=== PATIENT | male | born 1955 | race Caucasian/White ===

== ENCOUNTER 2017-08-27 12:16 | Emergency (ER) | payer MEDICARE ==
[~2017-08-27] VITALS: Ht 175.3 cm; Wt 71.7 kg
[~2017-08-27 12:16] MED LIST: ANTACID650 MG PO; CALCIUM ACETAT667 MG PO; FLOMAX0.4 MG PO; HUMALOG100 UNIT/2 SQ; KAYEXALATE15 GM/601 GT; LANTUS100 UNIT/M SUBQ; LEVAQUIN 500 M500 M2 PO; LIPITOR10 MG PO; METOPROLOL SUCC50 MG PO; NEURONTIN 300300 M1 PO; NEURONTIN250 MG/5 M PO; NEURONTIN600 MG PO; NICOTINE TRANSD21 M1 TRANSDERM; PREDNISONE 10 M10 MG PO
[2017-08-27 14:41] VITALS: BP 196/81
== END 2017-08-27 14:42 | disposition home or self-care (01) ==
LOC: M.ERS 12:16
DX: S16.1XXA Strain of muscle, fascia and tendon at neck level, initial encounter (principal); S09.90XA Unspecified injury of head, initial encounter; S39.012A Strain of muscle, fascia and tendon of lower back, initial encounter; I13.0 Hypertensive heart and chronic kidney disease with heart failure and stage 1 through stage 4 chronic kidney disease, or unspecified chronic kidney disease; E11.22 Type 2 diabetes mellitus with diabetic chronic kidney disease; N18.9 Chronic kidney disease, unspecified; I50.9 Heart failure, unspecified; Z79.4 Long term (current) use of insulin; V43.53XA Car driver injured in collision with pick-up truck in traffic accident, initial encounter; Y93.89 Activity, other specified; Y92.89 Other specified places as the place of occurrence of the external cause; Y99.8 Other external cause status

== ENCOUNTER 2017-11-08 09:02 | Observation (INO) | payer MEDICARE ==
[~2017-11-08] VITALS: Ht 175.3 cm; Wt 82.1 kg
[2017-11-08 09:03] VITALS: BP 197/134
[2017-11-08] MEDS ORDERED: LIDOCAINE-PRIL1 EACH TOP (09:09)
[2017-11-08] MEDS ORDERED: CALCIUM CARBONAT1 GM PO (09:09)
[2017-11-08] MEDS ORDERED: REQUIP1 MG PO (09:10)
[2017-11-08] MEDS ORDERED: FINASTERIDE5 MG PO (09:10)
[2017-11-08] MEDS ORDERED: VITAMIN D2000 UNIT PO (09:10)
[2017-11-08] MEDS ORDERED: MAGOX 400400 MG PO (09:10)
[2017-11-08] MEDS ORDERED: VOL-CARE RX TA1 EACH PO (09:10)
[2017-11-08 09:23] LABS: ABSOLUTE BASOPHILS 0.1 thou/uL (0.0-0.2); ABSOLUTE EOSINOPHILS 0.2 thou/uL (0.0-0.7); ABSOLUTE LYMPHOCYTES 1.5 thou/uL (0.8-5.3); ABSOLUTE MONOCYTES 0.4 thou/uL (0.0-1.2); ABSOLUTE NEUTROPHILS 3.7 thou/uL (1.6-8.1); BASOPHILS 1.3 %; EOSINOPHILS 3.8 %; HEMATOCRIT 37.7 % (42.0-52.0); LYMPHOCYTES 25.3 %; MCH 30.6 pg (26.0-34.0); MCHC 34.6 g/dL (28.0-37.0); MCV 88.4 fL (80.0-100.0); MONOCYTES 6.7 %; MPV 7.9 fl. (7.2-11.1); NUCLEATED RBCS 0 /100WBC; PLATELET COUNT* 241 thou/uL (150-400); POLYS 62.9 %; RBC 4.26 mil/uL (4.50-6.00); RDW-CV 14.6 % (10.5-14.5); WBC 5.8 thou/uL (4.0-11.0)
[2017-11-08 09:34] LABS: APTT 27.1 Seconds (25.0-31.3); PROTIME 9.5 Seconds (9.20-11.50)
[2017-11-08 09:37] LABS: ANION GAP 3 mmol/L (7-16); BUN 24 mg/dL (7-18); CALCIUM 8.7 mg/dL (8.5-10.1); CHLORIDE 99 mmol/L (98-107); CO2 36 mmol/L (21-32); CREATININE 2.9 mg/dL (0.6-1.3); GLUCOSE 117 mg/dL (70-99); POTASSIUM 4.4 mmol/L (3.5-5.1); SODIUM 138 mmol/L (136-145)
[2017-11-08 09:50] LABS: URINE BILIRUBIN NEGATIVE (Negative); URINE BLOOD TRACE (Negative); URINE CLARITY CLEAR; URINE COLOR YELLOW; URINE GLUCOSE-RANDOM 3+ (Negative); URINE KETONES NEGATIVE (Negative); URINE LEUKOCYTES-REFLEX NEGATIVE (Negative); URINE NITRITE-REFLEX NEGATIVE (Negative); URINE PROTEIN 3+ (Negative); URINE SPECIFIC GRAVITY 1.015 (1.005-1.030); URINE UROBILINOGEN 0.2 E.U./dl (0.2-1.0)
[2017-11-08 09:56] LABS: SQUAMOUS 4-10 Moderate /LPF (0-3)
[2017-11-08 09:57] LABS: ALBUMIN 2.9 g/dL (3.4-5.0); ALKALINE PHOSPHATASE 100 U/L (46-116); AMMONIA 15 umol/L (11-32); CK-MB MASS 2.3 ng/mL (<0.5-3.6); NT-PRO BRAIN NAT PEPTIDE 14598 pg/mL (<300); SGOT 13 U/L (15-37); SGPT 16 U/L (30-65); TOTAL BILIRUBIN 0.3 mg/dL (<0.1-1.0); TOTAL PROTEIN 7.1 g/dL (6.4-8.2); TROPONIN-I LEVEL <0.06 ng/mL (<0.06)
[2017-11-08 09:57] LABS: AMP/METHAMP Negative (Negative); BACTERIA-REFLEX 1-9 Few /HPF (None Seen); BARBITURATES Negative (Negative); BENZODIAZEPINES Negative (Negative); CASTS None Seen /LPF (None Seen); COCAINE Negative (Negative); CRYSTALS None Seen /LPF (None Seen); METHADONE Negative (Negative); MUCUS None Seen strn/LPF (None Seen); OPIATES Negative (Negative); PCP Negative (Negative); THC Negative (Negative); URINE RBC 3-10 Few /HPF (0-2); URINE WBC-REFLEX 0-5 Rare /HPF (0-5)
--- NOTE | 2017-11-08 10:02 | NUR ---
[facility] NOTIFIED UPON PT RETURN FROM CT. PT CONNECTED TO MONITOR
[2017-11-08 11:58] VITALS: BP 159/109
[2017-11-08 12:00] VITALS: BP 182/60
--- NOTE | 2017-11-08 12:30 | NUR ---
ER ADMIT TO ROOM 10 VIA W/C FROM ER. ADMISSION ASSESSMENT COMPLETE, DEFER TO COMPUTER CHARTING. 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 DENIES DIZZINESS, CHEST PAIN OR ANY DISCOMFORT AT THIS TIME. ORIENTED TO ROOM/CALL LIGHT AND PLAN OF CARE, VERBALIZED UNDERSTANDING. SUPERVISION TO W/C TO MRI FOR TEST.
[2017-11-08 15:37] VITALS: BP 171/66
--- NOTE | 2017-11-08 16:02 | EKG ---
[place] [address] ELECTROCARDIOGRAM REPORT Name: FRANKY HERRERA Room: [address] ADM IN M.R.#: [id number] Admission: 11/08/17 Attend Phys: Fareed Vasquez MD Discharge: Date of : 53 Report #: [id number] THIS REPORT FOR: //name// [facility] ED Test Date: 2017-11-08 Test Time: 09:19:39 Pat Name: FRANKY HERRERA Department: Room: [facility] Gender: M Athletic Instructor: COX BRANSON : 1955 Requested By: Casey Mark Order Number: [id number] MD: Davdi Moser Measurements Intervals [place] Rate: 51 P: 34 HI: 257 QRS: -83 QRSD: 95 T: 137 QT: 493 QTc: 455 Interpretive Statements Sinus rhythm Prolonged HI interval LAD, consider left anterior fascicular block Abnormal T, consider ischemia, lateral leads Baseline wander in lead(s) V1 Compared to ECG 01/26/2017 11:22:36 First degree AV block now present T-wave abnormality now present Possible ischemia now present Electronically Signed On 11-08-2017 16:02:44 CDT by David Moser [email or web address] <ELECTRONICALLY SIGNED> By: David Moser MD, [facility] 11/08/17 1602 8 8 David Moser MD, [facility] /EPI
--- NOTE | 2017-11-08 16:42 | NUR ---
CARIDAC MONITOR TRACKING SB. ALERT ORIENTED, AMBULATED IN HALLS WITH PHYSICAL THERAPY. NO DIFFICULTY WITH SWALLOWING NOTED, DENIES DIZZINESS, PAIN - NIH SCORE 0 AT THIS TIME. WILL CONTINUE WITH PLAN OF CARE.
--- NOTE | 2017-11-08 17:05 | 2DMMODE ---
[place] [address] 2 D/M-MODE ECHOCARDIOGRAM Name: FRANKY HERRERA Room: [address] IN [facility]#: [id number] Admission: 11/08/17 Attend Phys: Fareed Vasquez, Discharge: Date of : 53 Date of Service: 11/08/17 1704 Report #: [id number] THIS REPORT FOR: //name// APPROVED REPORT Study performed: 11/08/2017 14:49:52 EXAM: Comprehensive 2D, Doppler, and color-flow Echocardiogram Patient Location: In-Patient Room #: 210 Status: routine BSA: 1.96 HR: 57 bpm BP: 163/118 mmHg Rhythm: NSR Other Information Study Quality: Good Indications CVA/TIA Echo Enhancing Agent Indication: Rule out Shunt Agent(s) / Amount(s) Used: Agitated Saline 10 cc 2D Dimensions LVEF(%): 69.68 (>50%) IVSd: 13.56 (7-11mm) LVOT Diam: 22.62 (18-24mm) LVDd: 48.99 mm PWd: 12.09 (7-11mm) Ascending Ao: 34.43 (22-36mm) LVDs: 29.71 (25-40mm) Aortic Root: 36.77 mm Tomlinson's LVEF: 69.68 % Volumes Left Atrial Volume (Systole) LA ESV Index: 45.20 mL/m2 Aortic Valve AoV Peak Chris.: 1.34 m/s AO Peak Gr.: 7.23 mmHg LVOT Max P.06 mmHg AO Mean Gr.: 4.43 mmHg LVOT Mean P.55 mmHg LVOT Max V: 1.01 m/s AO V2 VTI: 35.21 cm LVOT Mean V: 0.77 m/[place] [address] 2 D/M-MODE ECHOCARDIOGRAM Name: FRANKY HERRERA Room: [address] IN ..#: [id number] Admission: 11/08/17 Attend Phys: Fareed Vasquez, Discharge: Date of : 53 Date of Service: 11/08/17 1704 Report #: [id number] CHANCE (VTI): 3.04 cm2 LVOT V1 VTI: 26.64 cm Mitral Valve E/A Ratio: 0.74 MV Decel. Time: 296.36 ms MV E Max Chris.: 0.67 m/s MV PHT: 85.95 ms MVA (PHT): 2.56 cm2 TDI E/Lateral E': 9.57 E/Medial E': 9.57 Medial E' Chris.: 0.07 m/s Lateral E' Chris.: 0.07 m/s Pulmonary Valve PV Peak Chris.: 0.95 m/s PV Peak Gr.: 3.57 mmHg Left Ventricle The left ventricle is normal size. There is normal LV segmental wall motion. Moderate concentric left ventricular hypertrophy. Left ventricular systolic function is normal. The left ventricular ejection fraction is within the normal range. LVEF is 55%. Grade I - abnormal relaxation pattern. Right Ventricle The right ventricle is normal size. The right ventricular systolic function is normal. Atria Left atrium is mildly dilated. Interatrial septum is intact without evidence of ASD or PFO. The right atrium size is normal. Aortic Valve Mild aortic valve sclerosis. No aortic regurgitation is present. There is no aortic valvular stenosis. Mitral Valve The mitral valve is normal in structure. Trace mitral regurgitation. No evidence of mitral valve stenosis. Tricuspid Valve The tricuspid valve is normal in structure. Unable to assess PA pressure. Trace tricuspid regurgitation. Pulmonic Valve The pulmonary valve is normal in structure. [place] [address] 2 D/M-MODE ECHOCARDIOGRAM Name: FRANKY HERRERA Room: [address] IN M.R.#: [id number] Admission: 11/08/17 Attend Phys: Fareed Vasquez, Discharge: Date of : 53 Date of Service: 11/08/17 1704 Report #: [id number] valvular regurgitation. Great Vessels The aortic root is normal in size. IVC is normal in size and collapses with >50% inspiration Pericardium There is no pericardial effusion. <Conclusion> The left ventricle is normal size. Moderate concentric left ventricular hypertrophy. Left ventricular systolic function is normal. The left ventricular ejection fraction is within the normal range. LVEF is 55%. Grade I - abnormal relaxation pattern. The right ventricle is normal size. Left atrium is mildly dilated. Mild aortic valve sclerosis. No aortic regurgitation is present. There is no aortic valvular stenosis. The mitral valve is normal in structure. The tricuspid valve is normal in structure. There is no pericardial effusion. There is normal LV segmental wall motion. Interatrial septum is intact without evidence of ASD or PFO. <ELECTRONICALLY SIGNED> By: David Moser MD, FACC 11/08/171703 03 03 David Moser MD, FACC /INF
[2017-11-08 19:08] LABS: GLYCOHEMOGLOBIN (HGB A1C) 8.5 % (4.8-5.6)
[2017-11-08 20:00] VITALS: BP 138/56
[2017-11-08 23:48] VITALS: BP 148/50
--- NOTE | 2017-11-09 02:40 | NUR ---
TOOK PT INTO CARE AT 1930. ASSESSMENT COMPLETED CHARTED. PT HAS DIALYSIS PORT IN LEFT UPPER ARM, THRILL AND BRUTE HEARD WITH NO S/SX OF INFECTION. PT DIABETIC WITH NEED FOR INSULIN, ABLE TO MAKE NEEDS KNOWN, NO C/O PAIN. PT DOESNT FOLLOW RENAL DIET, FLUID RESTRICTED 36 OUNCES PER PT. STILL URINATES, NO OUTPUT NOTED THIS SHIFT. IV IN RIGHT FOREARM SALINE FLUSHED. WILL CONTINUE WITH PLAN OF CARE.
[2017-11-09 04:31] VITALS: BP 188/76
[2017-11-09 05:15] LABS: CHOLESTEROL 210 mg/dL (<200); HDL CHOLESTEROL 52 mg/dL (>40); LDL CHOLESTEROL 105 mg/dL (<100); TRIGLYCERIDE 268 mg/dL (<150); VLDL 54 mg/dL (<40)
[2017-11-09 05:21] LABS: SERUM ASSESSMENT CLEAR
[2017-11-09 08:00] VITALS: BP 106/73
[2017-11-09] MEDS ORDERED: ATORVASTATIN CA40 MG PO (09:03)
[2017-11-09] MEDS ORDERED: ASPIRIN EC81 M1 PO (09:03)
[2017-11-09] MEDS ORDERED: LISINOPRIL40 MG PO (09:04)
--- NOTE | 2017-11-09 11:33 | NUR ---
CM SPOKE TO THE PATIENT TO DISCUSS HOME SITUATION, DISCHARGE PLANNING, AND TO INFORM OF THE ROLE OF CM. PATIENT ALERT, ORIENTED, AND INDEPENDENT WITH ADL'S. PATIENT RESIDES AT HOME ALONE. PATIENT DRIVES. PATIENT RECIEVES DIALAYSIS AT [facility] (). PATIENT USES 0 DME. PATIENT HAS NO HX OF HH OR SNF. PATIENT PLANS TO RETURN HOME AT D/C, AND HAS NO OTHER QUESTIONS OR CONCERNS AT THIS TIME. CM WILL REMAIN AVAILABLE TO ASSIST AND FOLLOW NEEDED.
[2017-11-09 12:08] VITALS: BP 168/76
[2017-11-09 14:15] VITALS: BP 168/76
--- NOTE | 2017-11-09 15:10 | NUR ---
VSS, RECIVED D/C INSTRUCTIONS, PROVITED D/C INSTRUCTIONS AND FILLED OUT D/C ORDERS, PT DENIES ANY QUESTIONS OR CONCERNS, IV AND TELE MONITOR TAKEN OFF AND PT WAS WALKED OFF UNIT BY STAFF TO CAR. ALL BELONGIONGS GATHERED AND PLACED WITH PT, HOURLY ROUNDS COMPLETED.
--- NOTE | 2017-11-14 15:48 | NUR ---
PT'S STATUS CHANGED TO OBS FOLLOWING DC FROM P.T. G-CODES ARE FOLLOWS: MOBILITY CURRENT-CH GOAL-CH DISCHARGE-CH
--- NOTE | 2017-11-27 17:05 | CON ---
[address] [address] CONSULTATION Name: FRANKY HERRERA Room: [address] Wanda Vallejo#: [id number] Admission: 11/08/17 Attend Phys: Fareed Vasquez MD Discharge: 11/09/17 Date of : 53 Report #: [id number] THIS REPORT FOR: //name// CC: Fareed PALOMINO DATE OF SERVICE: 11/08/2017 HISTORY OF PRESENT ILLNESS: This is a 62-year-old male patient who was evaluated for an episode of confusion. He indicated he had some tingling and numbness on the right side. His speech was not very good and he was confused. He does not remember much about it. This happened after dialysis, and this is his third episode in a month. He has been on dialysis since the middle of last year, but these episodes started recently. He does not know what bring them on, but when it happens he is severely confused. REVIEW OF SYSTEMS: Indicate he is a diabetic. He is on dialysis. He has a history of chronic obstructive pulmonary disease and congestive heart failure. He has a history of hypertension. He feels back to his normal self now. He is not having any headache. He does have a history of heart failure. He has a cervical sprain. He does say that he had some transient ischemic attacks in the past, but history is not very clear. He feels back to his baseline and presently was not having any new eye, ENT, cardiac, respiratory, GI, , musculoskeletal, constitutional, dermatological, hematological, psychiatric, throat, allergic symptom associated with present symptomatology. PAST MEDICAL HISTORY: Positive for these episode, which happened twice. FAMILY HISTORY: Negative for early age stroke. SOCIAL HISTORY: He drinks alcohol very rarely, but he does smoke. PHYSICAL EXAMINATION: Indicate he is alert, responsive, able to follow simple and complex command. His speech, concentration, fund of knowledge and memory is at his baseline. Cranial nerve examination 2-12 looks unremarkable. His strength, sensation, reflexes and tones are symmetrical. His reflexes are diminished in the lower extremity, but I believe position sense is present. He has no cerebellar sign. I could not have a very good look at the patient's fundus. He is otherwise well-developed, well-nourished individual who does not have any dysmorphic features of eyes, ears and face. His vision and hearing look adequate. His pulses are difficult to feel. He has no edema, cyanosis or jaundice. Cardiac examination mostly looks unremarkable. No respiratory difficulty or rhonchi was noticed. His blood pressure is 171/66, respirations 16, pulse is 56, temperature 98.7. LABORATORY DATA: White count is normal. His GFR is 22. [place] [address] CONSULTATION Name: FRANKY HERRERA [address] [id number] Admission: 11/08/17 Attend Phys: Fareed aVsquez MD Discharge: 11/09/17 Date of : 53 Report #: [id number] the brain and they were reviewed and they were mostly unremarkable. IMPRESSION: I suspect the symptoms may be because of vasospasm. The possibility of these being seizures needs to be excluded. Possibility of this being systemic etiology must be considered and excluded. That is especially true because he came with hypertension here. I will defer that evaluation and management to yourself. However, hypertensive urgency can give rise to vasospasm and causing these symptoms. RECOMMENDATIONS: 1. We will get an EEG done. 2. We will watch this patient to see how he does with control of his blood pressure. 3. He should monitor his blood pressure in a regular fashion, especially during dialysis. 4. I will ask Dr. Wyatt to follow up this patient with you from tomorrow and check the EEG and see what further treatment needs to be done. He was strongly advised to stop smoking and control his blood pressure and check it on a regular basis. <ELECTRONICALLY SIGNED> By: Gordy Betancourt MD 11/27/17 1705 1640 [id number] Betancourt MD /nt
== END 2017-11-09 15:19 | disposition home or self-care (01) ==
LOC: M.ERS 09:02 → M.2W 10:21 → M.TBA-ER 10:21 → M.2W 12:00
PROVIDERS: Emergency Medicine Emergency Medical Services; ADMIT Internal Medicine
DX: G45.9 Transient cerebral ischemic attack, unspecified (principal); R47.01 Aphasia; I16.1 Hypertensive emergency; E11.22 Type 2 diabetes mellitus with diabetic chronic kidney disease; I13.2 Hypertensive heart and chronic kidney disease with heart failure and with stage 5 chronic kidney disease, or end stage renal disease; I50.32 Chronic diastolic (congestive) heart failure; J44.9 Chronic obstructive pulmonary disease, unspecified; N18.6 End stage renal disease; I65.29 Occlusion and stenosis of unspecified carotid artery; E78.5 Hyperlipidemia, unspecified; F17.210 Nicotine dependence, cigarettes, uncomplicated; Z79.4 Long term (current) use of insulin

== ENCOUNTER 2017-12-24 18:17 | Emergency (ER) | payer MEDICARE ==
[~2017-12-24] VITALS: Ht 175.3 cm; Wt 70.2 kg
[~2017-12-24 18:17] MED LIST changes: +ASPIRIN EC81 M1 PO; +ATORVASTATIN CA40 MG PO; +CALCIUM CARBONAT1 GM PO; +FINASTERIDE5 MG PO; +LIDOCAINE-PRIL1 EACH TOP; +LISINOPRIL40 MG PO; +MAGOX 400400 MG PO; +REQUIP1 MG PO; +VITAMIN D2000 UNIT PO; +VOL-CARE RX TA1 EACH PO
[2017-12-24 19:05] VITALS: BP 157/80
== END 2017-12-24 19:05 | disposition left against medical advice (07) ==
LOC: M.ERS 18:17
DX: L03.312 Cellulitis of back [any part except buttock and flank] (principal); J44.9 Chronic obstructive pulmonary disease, unspecified; I12.0 Hypertensive chronic kidney disease with stage 5 chronic kidney disease or end stage renal disease; N18.6 End stage renal disease; E11.22 Type 2 diabetes mellitus with diabetic chronic kidney disease; F17.210 Nicotine dependence, cigarettes, uncomplicated; Z88.6 Allergy status to analgesic agent; Z88.5 Allergy status to narcotic agent; Z79.4 Long term (current) use of insulin

== ENCOUNTER 2017-12-24 19:45 | Inpatient (IN) | payer MEDICARE ==
[~2017-12-24] VITALS: Ht 175.3 cm; Wt 69.9 kg
[2017-12-24 20:01] VITALS: BP 161/86
[2017-12-24 20:54] LABS: HEMOGLOBIN 9.8 gm/dL (14.0-18.0); MCH 30.4 pg (26.0-34.0); MCHC 33.8 g/dL (28.0-37.0); MCV 89.8 fL (80.0-100.0); MPV 7.8 fl. (7.2-11.1); NUCLEATED RBCS 0 /100WBC; PLATELET COUNT* 240 thou/uL (150-400); RBC 3.23 mil/uL (4.50-6.00); RDW-CV 13.8 % (10.5-14.5); WBC 14.9 thou/uL (4.0-11.0)
[2017-12-24 20:59] LABS: CALCIUM 8.2 mg/dL (8.5-10.1); POTASSIUM 5.7 mmol/L (3.5-5.1)
[2017-12-24 21:04] LABS: APTT 32.4 Seconds (25.0-31.3); PROTIME 9.9 Seconds (9.20-11.50); TOTAL BILIRUBIN 0.3 mg/dL (<0.1-1.0); TOTAL PROTEIN 6.6 g/dL (6.4-8.2)
[2017-12-24 21:18] LABS: ABSOLUTE EOSINOPHILS 0.4 thou/uL (0.0-0.7); ABSOLUTE LYMPHOCYTES 0.7 thou/uL (0.8-5.3); ABSOLUTE MONOCYTES 0.9 thou/uL (0.0-1.2); ABSOLUTE NEUTROPHILS 12.8 thou/uL (1.6-8.1); PLATELET ESTIMATE ADEQUATE
[2017-12-24 21:20] LABS: ANISOCYTOSIS Occasional; TOXIC GRANULATION 2+
[2017-12-24 23:58] VITALS: BP 161/78
[2017-12-25 00:04] LABS: BE 0.6 mmol/L (-2 to +3); HCO3 24.6 mmol/L (22.0-26.0); PO2 VENOUS 40.4 mmHg (35.0-45.0)
--- NOTE | 2017-12-25 01:32 | NUR ---
PATIENT ADMITTED TO UNIT FROM ER AT APPROXIMATELY 0000. VSS ON RA. C/O OF PAIN WHEN MOVES ONTO BACK WHERE ABSCESS IS. PAIN MEDICATION GIVEN IN THE ER. PATIENT ORIENTED TO ROOM AND POLICIES. ASSESSMENT CHARTED. FALL EDUCATION GIVEN AND FALL AGREEMENT SIGNED. PATIENT IS STEADY ON FEET. PATIENT INSTRUCTED TO USE CALL LIGHT WHEN NEEDING ASSISTANCE. HOURLY ROUNDS MADE. WILL CONTINUE WITH PLAN OF CARE AND NURSING TO MONITOR.
--- NOTE | 2017-12-25 05:14 | NUR ---
PATIENT HAS RESTED QUIETLY SINCE BEING ADMITTED TO UNIT. VSS ON RA. PAIN MEDICATION GIVEN AND CHARTED. NEW DRESSING APPLIED TO ABSCESS ON BACK. PICTURES TAKEN AND ON CHART. WOUND CARE CONSULTED. IV IN RIGHT HAND-SL. PATIENT INSTRUCTED TO USE CALL LIGHT WHEN NEEDING ASSISTANCE. HOURLY ROUNDS MADE. WILL CONTINUE WITH PLAN OF CARE AND NURSING TO MONITOR
--- NOTE | 2017-12-25 08:00 | NUR ---
RECEIVED REPORT FROM CELESTINO. ASSUMED CARE OF PT AT 0730. VSS. PT ON RA. IV SALINE LOCKED. PT REPORTS BACK PAIN AND ASKING FOR PAIN MEDS THIS AM. PRN MORPHINE GIVEN WITH RELIEF. DRESSING TO BACK C/D/I AT THIS TIME. PT ALERT AND ORIETNED X4. PT IS UP INDEPENEDENTLY IN ROOM. TODAY IS PT'S DIALYSIS TODAY. PT INFORMED OF PLAN OF CARE. PT COMMUNICATES UNDERSTANDING. CALL LIGHT IS WITHIN REACH. WILL CONTINUE TO MONTIOR FOR DURATION OF SHIFT.
[2017-12-25 08:30] VITALS: BP 153/61
--- NOTE | 2017-12-25 12:00 | NUR ---
PT.IN DIALYSIS. PLAN IS FOR HIM TO GO TO SURGERY TOMORROW FOR I&D OF BACK ABSCESS. WILL SEE TOMORROW.
--- NOTE | 2017-12-25 14:49 | EKG ---
[place] [address] ELECTROCARDIOGRAM REPORT Name: FRANKY HERRERA Room: [address] IN [facility]#: [id number] Admission: 12/24/17 Attend Phys: Jf Baird MD Discharge: Date of : 53 Report #: [id number] THIS REPORT FOR: //name// [facility] ED Test Date: 2017-12-24 Test Time: 21:22:23 Pat Name: FRANKY HERRERA Department: Room: Gender: Practicing Urologist: : 1955 Requested By: Mayank Olson Order Number: [id number] MD: Francesco Jin Measurements Intervals Dickinson Rate: 71 P: 44 VA: 199 QRS: -77 QRSD: 96 T: 72 QT: 382 QTc: 416 Interpretive Statements Sinus rhythm Supraventricular bigeminy Inferior infarct, old Compared to ECG 11/08/2017 09:19:39 Atrial premature complex(es) now present Myocardial infarct finding now present First degree AV block no longer present T-wave abnormality no longer present Possible ischemia no longer present Electronically Signed On 12-25-2017 14:49:07 CDT by Francesco Jin [email or web address] <ELECTRONICALLY SIGNED> By: Francesco Jin MD, FACC 12/25/17 1449 21 21 Francesco Jin MD, [facility] /EPI
[2017-12-25 17:30] VITALS: BP 141/56
--- NOTE | 2017-12-25 18:31 | NUR ---
VSS. PT RETURNED FROM TO ROOM FOR DIALYSIS THIS EVENING. NEW IV STARTED RIGHT AC. ANTIBIOTIC STARTED AND PAIN MEDS GIVEN. PRN TYLENOL GIVEN FOR FEVER. PT PARTIALLY PROGRESSING TOWARDS GOALS. PLAN FOR PT TO HAVE SURGERY IN AM. PT INFORMED OF PLAN OF CARE. CALL LIGHT IS WITHIN REACH. WILL CONTINUE TO MONTIOR FOR DURAITON OF SHIFT.
[2017-12-25 20:00] VITALS: BP 116/54
[2017-12-25 23:21] VITALS: BP 133/63
--- NOTE | 2017-12-26 05:07 | NUR ---
PT SLEPT AT INTERVALS DURING THE NIGHT, IV ANTIBIOTIC INFUSED, PRN PAIN MEDS PER REQUEST, NPO SINCE MIDNIGHT, PLEASANT, CALL LIGHT IN REACH, WILL CONTINUE TO MONITOR
[2017-12-26 08:00] VITALS: BP 125/55
[2017-12-26 09:02] VITALS: BP 125/55
--- NOTE | 2017-12-26 12:20 | CON ---
[address] [address] CONSULTATION Name: FRANKY HERRERA Room: [address] IN M.R.#: [id number] Admission: 12/24/17 Attend Phys: Jf Baird MD Discharge: Date of : 53 Report #: [id number] THIS REPORT FOR: //name// CC: Jf PALOMINO Physician staff DATE OF SERVICE: 12/25/2017 ATTENDING PHYSICIAN: Dr. Bangura. REASON FOR EVALUATION: Back skin and soft tissue infection with abscess. HISTORY OF PRESENT ILLNESS: Chart reviewed, patient examined. This is a 62-year-old man with diabetes mellitus diagnosed roughly 15 years ago, who has been on end-stage renal disease with hemodialysis about a year, who noted onset of a papular type lesion over his back. He denies any antecedent injury. It progressed over the course of the last several days and now, it extends several centimeters in diameter, has not clearly had significant fevers. Denies pulmonary or gastrointestinal complaints. He does admit to some progressive weight loss on an ongoing basis. He is not encephalopathic. Denies any pulmonary or gastrointestinal related complaints. ALLERGIES: TO OXYCODONE, ACETAMINOPHEN. MEDICATIONS: Include finasteride, atorvastatin, ropinirole, aspirin, cholecalciferol, metoprolol, tamsulosin, vancomycin, p.r.n. analgesics, antiemetics. PAST MEDICAL HISTORY: Includes diabetes mellitus complicated by end-stage renal disease, hypertension, hyperkalemia. SOCIAL HISTORY: Smokes half pack a day, 50 pack years. No ethanol. No illicit drug use. FAMILY HISTORY: Noncontributory. REVIEW OF SYSTEMS: As above. PHYSICAL EXAMINATION: GENERAL: He appears somewhat chronically ill, undernourished. He is pleasant, cooperative, mild to moderate distress. VITAL SIGNS: Temperature 98.3 with a T-max of 100.6, pulse 71, respirations 16, blood pressure /61. SKIN: Warm and no rashes. HEENT: Otherwise, [place] [address] CONSULTATION Name: FRANKY HERRERA Room: [address]#: [id number] Admission: 12/24/17 Attend Phys: Jf Baird MD Discharge: Date of : 53 Report #: [id number] NECK: Supple. LUNGS: Diminished breath sounds. BACK: He has got marked inflammatory changes. There is an area of appears to be a sinus tract with drainage of purulent material. It is quite indurated and tender to palpation. ABDOMEN: Soft, nontender, nondistended. EXTREMITIES: No cyanosis. GENITOURINARY: Deferred. RECTAL: Deferred. LABORATORY DATA: Blood cultures sterile thus far. Prealbumin of 12.7. Lactic acid 0.6. CBC: White count of 14.9, H and H 9.8 and 29.0, platelets of 240, lymphocytopenia of 700. Lactic acid 2.3 initially. Electrolytes: Sodium 126, potassium 5.7, chloride 91, bicarbonate is 28, BUN and creatinine 45 and 6.0, glucose of 421. Albumin 2, total protein 6.6. LFTs unremarkable. ASSESSMENT AND PLAN: Skin and soft tissue infection related to back with apparent abscess, awaiting surgical evaluation. We will go ahead and check culture. We will adjust vancomycin dosing given the renal dysfunction. At this point, he is not overtly toxic. <ELECTRONICALLY SIGNED> By: Justin Mondragon MD 12/26/17 1220 1006 31Joelias Mondragon MD /nt
--- NOTE | 2017-12-26 12:24 | NUR ---
WOUND CARE NOTE: CONSULT RECEIVED FOR ABSCESS ON BACK. PATIENT HAD AN I&D OF THIS AREA TODAY, WILL DEFER ASSESSMENT AT THIS TIME
[2017-12-26 15:38] VITALS: BP 128/64
--- NOTE | 2017-12-26 15:40 | NUR ---
PATIENT HAS BEEN ALERT AND ORIENTED TODAY VERY PLEASANT. HAD SURGERY THIS MORNING ON ABCESS ON BACK. VITALS SIGNS HAVE BEEN STABLE ON ROOM AIR. UP WITH STAND BY SINCE SURGERY/ NO COMPLAINTS OF ANY KIND TODAY. CALL LIGHT IS IN REACH, WILL CONTINUE TO MONITOR.
--- NOTE | 2017-12-26 15:41 | NUR ---
RECEIVED REPORT FROM PREVIOUS RN. AGREE WITH ASSESSMENT. CLWR. WCTM.
--- NOTE | 2017-12-26 15:58 | NUR ---
PT.STILL DROWSY FROM SURGERY. WOULD ONLY TALK TO CM A FEW MIN.AND THEN FALL BACK TO SLEEP. HAD I&D OF UP BACK AREA. REVEIW OF CHART LOOKS LIKE HE LIVES WITH HIS SISTER. HE IS INDEPENEDNT AT HOME. HE DRIVES HIMSELF TO DIALYSIS. HE GOES TO [facility] HERE IN [place]. CM WILL FOLLOW.
[2017-12-26 20:00] VITALS: BP 108/56
[2017-12-27 00:15] VITALS: BP 113/52
[2017-12-27 04:12] VITALS: BP 125/50
[2017-12-27 04:28] LABS: HEMATOCRIT 27.6 % (42.0-52.0); HEMOGLOBIN 9.4 gm/dL (14.0-18.0); MCH 30.1 pg (26.0-34.0); MCHC 33.9 g/dL (28.0-37.0); MCV 88.9 fL (80.0-100.0); MPV 7.5 fl. (7.2-11.1); NUCLEATED RBCS 0 /100WBC; PLATELET COUNT* 249 thou/uL (150-400); RBC 3.11 mil/uL (4.50-6.00); RDW-CV 14.3 % (10.5-14.5); WBC 12.1 thou/uL (4.0-11.0)
[2017-12-27 04:36] LABS: CALCIUM 8.1 mg/dL (8.5-10.1); CREATININE 5.9 mg/dL (0.6-1.3); POTASSIUM 4.1 mmol/L (3.5-5.1)
[2017-12-27 05:50] LABS: ABSOLUTE EOSINOPHILS 0.2 thou/uL (0.0-0.7); ABSOLUTE LYMPHOCYTES 1.7 thou/uL (0.8-5.3); ABSOLUTE MONOCYTES 0.2 thou/uL (0.0-1.2); ABSOLUTE NEUTROPHILS 9.9 thou/uL (1.6-8.1); ANISOCYTOSIS 1+; PLATELET ESTIMATE ADEQUATE; POIKILOCYTOSIS 1+
--- NOTE | 2017-12-27 07:49 | NUR ---
Oriented x 4 but drowsy. BP was low at bedtime toprol held. He had a 102.[address] Hill notified and orders were recieved, blood cultures drawn and oral tylenol given. His post op bulky dressing to his back has been dry and intact. His temp did decrease through the shift. He has dialysis shunt to L upper extremity. He did get up independently in his room and he did void x 1. He hasn't had clothes on this shift but this am he is wearing PJ bottoms. He did score positive on sepsis intervention b/c of the high temp and high creatinine level. He is getting IV zosyn every [address] Hill notified this am amd no new orders at this time. He has slept well.
[2017-12-27 08:04] VITALS: BP 121/58
--- NOTE | 2017-12-27 14:20 | CON ---
[address] [address] CONSULTATION Name: FRANKY HERRERA Room: [address] IN .R.#: [id number] Admission: 12/24/17 Attend Phys: Jf Baird MD Discharge: Date of : 53 Report #: [id number] THIS REPORT FOR: //name// CC: [facility] Phys[facility] staff DATE OF SERVICE: 12/25/2017 CONSULTING PHYSICIAN: Jf Baird MD. REASON FOR NEPHROLOGY CONSULTATION: End-stage renal disease for hemodialysis. CHIEF COMPLAINT: The patient came because of infection in his back and abscess formation. HISTORY OF PRESENT ILLNESS: This is a pleasant 62-year-old male who has past medical history of diabetes, hypertension, and other medical problems and he is on hemodialysis every Sunday, , Sunday and he goes to [facility] under care of Dr. Elizabeth who came in because of swelling and infection to his left back. The patient was admitted for antibiotics and his glucose was high in 400. His sodium was 126, his potassium was 5.7. He states he is very compliant with his dialysis and he had his full treatment on Sunday. He said he has been on dialysis for the last 1 year and his kidneys failed because of his diabetes. The patient is currently comfortable. REVIEW OF SYSTEMS: He has a dressing placed to his left lower back where he said that he had a pimple, which turned into more infection, he has no shortness of breath, no nausea, no vomiting, no chest pain. Other review of systems were done and they were negative. ALLERGIES: TO OXYCODONE AND PERCOCET. PAST MEDICAL HISTORY: Includes diabetes type 2, COPD, ESRD, hypertension, hyperkalemia. PAST SURGICAL HISTORY: He has a left arm AV fistula with good bruit and good thrill. HOME MEDICATIONS: Include aspirin, atorvastatin, tamsulosin, calcium acetate, calcium carbonate, finasteride, ropinirole, cholecalciferol, insulin lispro, metoprolol, Vitamin B complex. FAMILY HISTORY: Noncontributory in this situation. SOCIAL HISTORY: He states that he smokes but does [place] [address] CONSULTATION Name: JAVIERFRANKY Pranay Room: [address]#: [id number] Admission: 12/24/17 Attend Phys: Jf Baird MD Discharge: Date of : 53 Report #: [id number] use any recreational drugs. PHYSICAL EXAMINATION: VITAL SIGNS: Blood pressure is 153/61, pulse rate of 71, respiratory rate 16 and temperature is 36.8 and pulse ox 93% on room air. GENERAL: He is awake, alert, oriented x 3. HEAD, EYES, EARS, NOSE, AND THROAT: Mucous membranes are moist. NECK: No JVD. CHEST: Bilaterally clear to auscultation, no crackles or wheezing. CARDIOVASCULAR: S1, S2 normal. No murmurs or rubs. ABDOMEN: Soft, nontender and bowel sounds are diminished. BACK: He has a dressing placed around his left lower back. I did not remove the dressing and look at his wound. LOWER EXTREMITIES: They are symmetrical and there is no edema. His left upper extremity, he has AV fistula with good bruit and good thrill. NEUROLOGICAL FUNCTION: His gross neurological function is intact. PSYCHIATRIC: His mood and affect seem to be normal. LABORATORY DATA: From this last night at 20:35, 12/24/2017, hemoglobin was 9.8 and his sodium was 126, potassium was 5.7, glucose was 421 and other labs were reviewed. IMAGING: No imaging to be reviewed right now. ASSESSMENT AND PLAN: 1. End-stage renal disease, on hemodialysis every Sunday, and Sunday: The patient is due for dialysis today and he is also hyponatremic and hyperkalemic. We will dialyze him today and that should help with his electrolytes. Although hyponatremia was also because of hyperglycemia. We will follow up with outpatient orders. 2. Anemia of chronic kidney disease: Hemoglobin 9.8. We will continue his outpatient Epogen. 3. Left lower back cellulitis, abscess: Antibiotic as per primary team. 4. Diabetes and blood glucose not controlled: Infection could have contributed to high blood glucose, but we will defer to primary team for further management of that. 5. Hypertension: Blood pressure is currently slightly high, should get better with fluid removal with dialysis. Thank you for this consultation and I will continue to follow along with you for his dialysis needs. <ELECTRONICALLY SIGNED> By: Layla Garcia MD 12/27/17 1420 0953 Zackery Garcia MD /jeremy
--- NOTE | 2017-12-27 14:45 | NUR ---
PT.JUST BACK FROM DIALYSIS. UP IN CHAIR. DISCUSSED DISCHARGE PLAN. HE UNDERSTANS WE ARE AWAITING FINAL CULTURES TO SEE WHAT ANTIBIOTICS HE WILL NEED TO BE ON. TOLD HIM HOPEFULLLY IF IT HAS TO BE IV, THEY CAN GIVE IT AT DIALYSIS. HE SAID IF HE NEEDS HOME HEALTH HE WOULD LIKE [facility]. WILL MAKE REFERRAL TO THEM.
[2017-12-27 15:42] VITALS: BP 140/51
--- NOTE | 2017-12-27 15:48 | NUR ---
ASSUMED CARES OF PT AT 0700. PT IN BED, BED IN LOW LOCKED POSITION. FALL PRECAUTIONS IN PLACE, CALL BUTTON AND PERSONAL ITEMS IN PT REACH. PT A&O X4, HRRR PER AUSCULTATION, LCTAB/DIMINISHED LL BILATERALLY. VSS ON RA, AFEBRILE, PERRLA. LEFT UPPER ARM AV FISTULA GOOD BRUIT AND THRILL. DIALYSIS T/TH/SAT. PT IN DIALYSIS OVER 4 HOURS DURING MORNING SHIFT, APPROX. 1/2 L REMOVED PER DIALYSIS NURSE DUE TO PT UNDER DRY WEIGHT AT START OF SESSION. PT UP INDEPENDENTLY TO BATHROOM, LAST BM 12/25/17. PULSES WNL RADIAL AND PEDAL. ABCESS IN LEFT FLANK FOUND WITH MRSA, CONTACT PRECAUTIONS STARTED, ID/DR. CABALLERO CONSULTED. RIGHT AC IV PATENT TO FLUSH AND IV ABT THERAPY. HOURLY ROUNDING AND ACCU CHECKS CONTINUE. PT PROGRESSING TOWARDS GOAL. WILL CONTINUE TO MONITOR PT STATUS AND PROGRESS.
--- NOTE | 2017-12-27 16:31 | NUR ---
WOUND CARE NOTE: CONSULT RECEIVED FOR ABSCESS ON BACK. PATIENT IS S/P I&D POD #1 TO LEFT FLANK. FULL THICKNESS WOUND MEASURING 2.5X4.8X2.8. LUIZA-WOUND WITH INDURATION, EDEMA AND INFLAMMATION. LARGE AMOUNT OF SEROSANGUINEOUS/PURULENT DRAINAGE ON OLD DRESSING. PURULENT DRAINAGE EXPRESSED UPON PALPATION OF LUIZA-WOUND. PATIENT STATES THE WOUND IS FEELING BETTER THAN WHEN HE FIRST CAME IN. WOUND AND LUIZA-WOUND CLEANSED WITH WOUND CLEANSER, PATTED DRY. PACKED WITH 1/2" IODOFORM GAUZE. COVERED WITH 4X4 THEN ABD. SECURED WITH TAPE. PATIENT TOLERATED DRESSING CHANGE WELL. EDUCATED PATIENT ON IMPORTANCE OF: SMOKING CESSATION NUTRITION FOR WOUND HEALING BLOOD SUGAR CONTROL. PATIENT DECLINES TO STOP SMOKING STATES 'I ONLY HAVE 8 OR SO YEARS LEFT WITH MY KIDNEYS AND ----. SMOKING IS THE ONLY THING I ENJOY DOING ANYMORE". RECOMMEND ENCOURAGE GOOD NUTRITION AND HYDRATION TIGHT BLOOD GLUCOSE CONTROL DAILY DRESSING CHANGES SMOKING CESSATION
--- NOTE | 2017-12-27 19:58 | NUR ---
REPORT TO [employer]ATIONAL [employer] COMPLIANCE MANAGER FOR CONTINUED CARES. PT REMAINS STABLE AND UP IN RECLINER WATCHING TV AT SHIFT CHANGE. IV IN RIGHT HAND PATENT TO ABT THERAPY AND FLUSH. PT STARTED ON CONTACT PRECAUTIONS FOR MRSA IN RIGHT BACK ABCESS. DRESSING CHANGED WITH WOUND NURSE Kieran PICTURES TAKEN. HOURLY ROUNDING AND ACCU CHECKS COMPLETED THIS SHIFT. PT PROGRESSING TOWARDS GOAL.
[2017-12-27 21:45] VITALS: BP 148/55
[2017-12-28 04:10] LABS: HEMATOCRIT 25.7 % (42.0-52.0); HEMOGLOBIN 8.7 gm/dL (14.0-18.0); MCH 30.2 pg (26.0-34.0); MCHC 33.7 g/dL (28.0-37.0); MCV 89.5 fL (80.0-100.0); MPV 7.7 fl. (7.2-11.1); RBC 2.87 mil/uL (4.50-6.00); RDW-CV 14.1 % (10.5-14.5); WBC 9.4 thou/uL (4.0-11.0)
[2017-12-28 04:17] LABS: CALCIUM 7.9 mg/dL (8.5-10.1); POTASSIUM 4.8 mmol/L (3.5-5.1)
[2017-12-28 04:24] LABS: CREATININE 3.7 mg/dL (0.6-1.3)
--- NOTE | 2017-12-28 04:43 | NUR ---
PATIENT HAS REMAINED ALERT AND ORIENTED X 4 THROUGHOUT THE SHIFT AND RESTING AT INTERVALS ON HOURLY ROUNDS. UP INDEPENDETLY IN ROOM. DRESSING CLEAN AND DRY TO BACK. MEDICATED FOR PAIN X 1. EARLY AM GLUCOSE BY LAB 60. RECHECK AT THIS TIME 76. PATIENT DECLINED ANY INTERVENTION. VITAL SIGNS STABLE. MEDS PER ORDERS. CONTINUE TO MONITOR.
[2017-12-28 08:54] VITALS: BP 162/70
--- NOTE | 2017-12-28 13:44 | NUR ---
FAXED H&P,OP REPORT AND FACE SHEET REFERRAL TO [facility]. IF DISCHARGED OVER THE WEEKEND,[facility] WILL NEED TO BE NOTIFIED AND FINAL WOUND CARE ORDERS FAXED TO THEM. [id number]-[phone] IAN-[phone]
[2017-12-28 13:51] VITALS: BP 162/70
--- NOTE | 2017-12-28 14:47 | NUR ---
RE: PHARMACY VANCOMYCIN DOSING. NEW ORDERS FOR VANCOMYCIN FROM I.D. PHYSICIAN. PHARMACY WILL DEFER AND SIGN OFF VANCOMYCIN DOSING. THANK YOU.
[2017-12-28 15:47] LABS: % SATURATION 24 % (20-39); IRON 27 ug/dL (50-175)
--- NOTE | 2017-12-28 16:53 | NUR ---
ASSUMED CARES OF PT AT 0700. PT IN BED, BED IN LOW LOCKED POSITION, PT SLEEPING. CALL BUTTON AND PERSONAL ITEMS IN PT REACH. PT A&O X4, HRRR PER AUSCULTATION, LCTAB, AFEBRILE, PERRLA. VSS ON RA, PT OCC. HYPERTENSIVE. PT UP INDEPENDENTLY TO BATHROOM. DIALYSIS T/TH/SAT, AV FISTULA LEFT UE BRUIT AND THRILL WNL. CONTACT PRECAUTIONS FOR MRSA IN BACK ABCESS WOUND, DRESSING CLEANSED AND REDRESSED MORNING SHIFT. HOURLY ROUNDING AND ACCU CHECKS CONTINUE. CONSULTS ID, NEPHROLOGY, SURGERY. PAIN SOMEWHAT CONTROLLED WITH IVP MORPHINE. PT PROGRESSING TOWARDS GOAL WITH IV ABT THERAPY. WILL CONTINUE TO MONITOR PT STATUS. IV IN RIGHT HAND POSITIONAL, WANT TO BEND AND KINK. WRAPPED IN [place] FOR PROTECTION. TAPE AND TEGADERM COMES LOOSE REPEATEDLY ON PT SKIN.
[2017-12-28 17:11] VITALS: BP 152/76
--- NOTE | 2017-12-28 21:02 | NUR ---
PT REMAINS STABLE AT SHIFT CHANGE REPORT. REPORT GIVEN FOR CONTINUED CARES. PT PRESENTLY IN BED, SLEEPING. ASSESSMENTS COMPLETED, MEDS WELL TAKEN PO AND IVP. HOURLY ROUNDING AND ACCU CHECKS COMPLETED.
[2017-12-28 22:00] VITALS: BP 152/56
--- NOTE | 2017-12-28 22:23 | NUR ---
PHONE MESSAGE LEFT FOR CLYDE/WOUND NURSE. SURGERY SUGGESTED USING CHLOAHEXADINE TO CLEAN BACK WOUND WITH DRESSING CHANGE. NO CALL BACK AT SHIFT CHANGE.
[2017-12-29 04:14] LABS: HEMATOCRIT 25.6 % (42.0-52.0); HEMOGLOBIN 8.6 gm/dL (14.0-18.0); MCH 30.4 pg (26.0-34.0); MCHC 33.6 g/dL (28.0-37.0); MCV 90.4 fL (80.0-100.0); MPV 7.3 fl. (7.2-11.1); RBC 2.83 mil/uL (4.50-6.00); RDW-CV 14.2 % (10.5-14.5)
--- NOTE | 2017-12-29 04:32 | NUR ---
PATIENT HAS REMAINED ALERT AND ORIENTED X 4 THROUGHOUT THE SHIFT AND RESTING QUIETLY AT HOURLY ROUNDS. MEDICATED X 1 FOR WOUND PAIN TO GOOD EFFECT. DRESSING TO BACK CLEAN AND DRY. VITAL SIGNS STABLE. BENADRYL REQUEST PROVIDED FOR ITCHING. CONTINUE TO MONITOR.
[2017-12-29 04:40] LABS: ALBUMIN 1.8 g/dL (3.4-5.0); MAGNESIUM 2.1 mg/dL (1.8-2.4); POTASSIUM 5.2 mmol/L (3.5-5.1); TOTAL BILIRUBIN 0.3 mg/dL (<0.1-1.0); TOTAL PROTEIN 5.5 g/dL (6.4-8.2)
[2017-12-29 10:30] VITALS: BP 145/65
[2017-12-29 11:53] VITALS: BP 125/55
--- NOTE | 2017-12-29 17:28 | NUR ---
ASSUMED CARE OF PATIENT AFTER RETURN FROM DIALYSIS AT APPROXIMATELY 1030. PATIENT WAS OFF THE UNIT WHEN I ARRIVED AT 0700 AND GOT REPORT. IV ANTIBIOTICS INFUSED ORDERED. PATIENT HAD NO COMPLAINTS OF NAUSEA OR SOA, PAIN HAS BEEN MANAGED WITH PAIN MEDICATION. PATIENTS WOUND ON HIS BACK WAS ASSESSED, PACKING AND DRESSING CHANGED DONE TODAY, AREA AROUND WOUND CLEANED WITH WOUND VOCATIONAL ED INSTRUCTOR BEFORE NEW PACKING AND DRESSING WAS APPLIED. GUAZE AND MEDIPORE TAPE USED OVER WOUND AND PACKING. PATIENT HAS REMAINED PLEASANT THROUGHOUT SHIFT DESPITE WANTING TO GO HOME EARLIER TODAY. PATIENT CLEANED UP THIS AFTERNOON AND BED LINENS CHANGED. HOURLY ROUNDS MAINTAINED, CALL LIGHT WITHIN REACH, AND NURSING WILL CONTINUE TO MONITOR.
[2017-12-29 17:51] VITALS: BP 131/63
[2017-12-29 20:00] VITALS: BP 103/68
--- NOTE | 2017-12-30 05:08 | NUR ---
ASSUMED CARE OF PT AT 1900 PT ALERT AND ORIENTED X4 VS AND ASSESMENT STABLE. PTS DRSG CDI. FISTULA RUE POSITIVE FOR BRUIT AND THRILL. PT DENIED ANY COMPLAINTS AND SLEPT THROUGH THE NIGHT. WILL CONTINUE PLAN OF CARE.
[2017-12-30 09:45] VITALS: BP 178/58
[2017-12-30 10:10] LABS: CALCIUM 7.7 mg/dL (8.5-10.1); CREATININE 4.3 mg/dL (0.6-1.3); POTASSIUM 4.1 mmol/L (3.5-5.1)
--- NOTE | 2017-12-30 12:23 | NUR ---
ASSUMED CARE OF PATIENT AFTER MORNING REPORT. ALERT AND ORIENTED X4. ASSESSMENT COMPLETED AND CHARTED. VSS ON ROOM AIR. PATIENT HAS HAD NO COMPLAINTS OF NAUSEA OR SOA. PAIN HAS BEEN MINIMAL AND PAIN MEDICATION WAS GIVEN BEFORE DRESSING CHANGE AND PHOTO DOCUMENTATION OF THE WOUND. DR CABALLERO HAS CLEARED PATIENT FOR DISCHARGE WITH HOME HEALTH COMING TO DO DRESSING CHANGES DAILY. DR MARTIN SPOKE TO THE PATIENT THIS MORNING WHILE DRESSING CHANGE WAS BEING DONE AND HE WAS NOT NOT COMFORTABLE DISCHARGING THE PATIENT AND WANTED TO DO SOME MORE LABS AND MONITORING. THE PATIENT BECOMA FRUSTRATED WITH DR MARTIN AND SAID HE WOULD JUST LEAVE AMA AND ASKED DR MARTIN TO LEAVE THE ROOM. I TRIED SPEAKING TO THE PATIENT AND DR MARTIN SEPARATELY AFTE RTHIS ALTERCATION TO COMPROMISE ON NOT LEAVING AMA. AFTER WAITING A FEW HOURS THE PATIENT DECIDED TO LEAVE AMA ANYWAY. THE RISKS OF LEAVING AMA WERE EXPLAINED TO THE PATIENT AND HE EXPRESSED UNDERSTANDING AND SIGNED THE AMA PAPERWORK AND LEFT THE UNIT WITH HIS SISTER AT APPROXIMATELY 1215.
--- NOTE | 2018-01-31 17:18 | OP ---
[address] [address] OPERATIVE REPORT Name: FRANKY HERRERA Room: [address]#: [id number] Admission: 12/24/17 Attend Phys: Jf Baird MD Discharge: 12/30/17 Date of : 53 Report #: [id number] THIS REPORT FOR: //name// CC: Jf PALOMINO Physician staff DICTATED BY: Aime Calvert DO DATE OF SERVICE: 12/26/2017 PREOPERATIVE DIAGNOSIS: Left upper back abscess. POSTOPERATIVE DIAGNOSIS: Left upper back abscess. PRIMARY SURGEON: Ricardo Sharif DO. AVIATION OPERATIONS SPECIALIST: Aime Calvert DO, PGY1. OPERATION PERFORMED: I and D of back abscess. ANESTHESIA TYPE: General LMA. ESTIMATED BLOOD LOSS: 5 mL. SPECIMENS REMOVED: None. COMPLICATIONS: None. INDICATION FOR PROCEDURE: The patient is a pleasant 62-year-old male with end-stage renal disease and diabetes, who presented to the Emergency Department 2 days ago with chief complaint of increased swelling and back pain of his left upper back for approximately last 5-7 days. The patient was admitted and placed on IV antibiotics, and General Surgery was consulted to evaluate for possible incision and drainage. The patient was noted to have a large approximately 10 x 20 cm area of induration, swelling, erythema with multiple central pinpoint ulcerations actively draining small amount of purulent fluid. The patient received dialysis yesterday, and plan for incision and drainage of abscess in the OR today. DESCRIPTION OF PROCEDURE: The patient was made n.p.o. at midnight. He was already receiving IV antibiotics prior to procedure. Proper informed consent was obtained. Full discussion of procedure, alternatives, risks and possible complications to include but not limited to bleeding, infection, postoperative pain, scarring, need for further debridement or drainage. The patient voiced understanding of these risks and [place] [address] OPERATIVE REPORT Name: JAVIERFRANKY Room: [address]#: [id number] Admission: 12/24/17 Attend Phys: Jf Baird MD Discharge: 12/30/17 Date of : 53 Report #: [id number] The patient was taken to the OR, transferred to the OR table, placed in supine position. Anesthesia then administered general anesthesia through LMA. The patient was then placed in the right lateral position using a beanbag. All joints and skin surfaces were protected. SCDs were placed. Grounding pad applied. Betadine prep was applied to the entire back. The patient was then prepped and draped using standard sterile fashion. Timeout was performed prior to incision, began by making a 3-4 cm incision over the central ulcerated region with immediate return of purulent drainage. Cultures were obtained. Cavity was then explored using blunt dissection with finger. No loculations are noted. The area was expressed manually with further return of purulent material. Incision was extended 1 cm medially towards the spine for purulent drainage. Area was suctioned well. Two bulb syringes of peroxide were irrigated into the abscess cavity, followed by 3 bulb syringes full of normal saline. It was packed with half inch iodoform gauze, 2 ABD pads were applied, Medipore tape to secure. The patient tolerated the procedure well and was extubated in the OR, transferred back to floor bed and transferred to PACU in stable condition. He will return to the floor to continue IV antibiotics and daily packing and dressing changes. <ELECTRONICALLY SIGNED> By: Ricardo Sharif DO 01/31/18 1718 [id number] [id number] Sharif DO /nt
== END 2017-12-30 12:15 | disposition left against medical advice (07) | DRG 853 ==
LOC: M.ERS 19:45 → M.TBA-ER 21:18 → M.ORTHSURG 21:18
PROVIDERS: Family Medicine; Nurse Practitioner Family; Surgery; ADMIT Internal Medicine
PROC: 0J970ZZ Drainage of Back Subcutaneous Tissue and Fascia, Open Approach (ICD-10-PCS; principal; 2017-12-26)
DX: A41.9 Sepsis, unspecified organism (principal); N18.6 End stage renal disease; E43 Unspecified severe protein-calorie malnutrition; L03.312 Cellulitis of back [any part except buttock and flank]; E87.1 Hypo-osmolality and hyponatremia; L02.212 Cutaneous abscess of back [any part, except buttock and flank]; I13.2 Hypertensive heart and chronic kidney disease with heart failure and with stage 5 chronic kidney disease, or end stage renal disease; J44.9 Chronic obstructive pulmonary disease, unspecified; E87.5 Hyperkalemia; I50.9 Heart failure, unspecified; I25.10 Atherosclerotic heart disease of native coronary artery without angina pectoris; E11.65 Type 2 diabetes mellitus with hyperglycemia; B95.62 Methicillin resistant Staphylococcus aureus infection as the cause of diseases classified elsewhere; R80.9 Proteinuria, unspecified; E55.9 Vitamin D deficiency, unspecified; H10.9 Unspecified conjunctivitis; D63.1 Anemia in chronic kidney disease; E11.22 Type 2 diabetes mellitus with diabetic chronic kidney disease; F17.210 Nicotine dependence, cigarettes, uncomplicated; Z99.2 Dependence on renal dialysis; Z79.4 Long term (current) use of insulin; Z68.22 Body mass index [BMI] 22.0-22.9, adult; Z79.82 Long term (current) use of aspirin; Z79.899 Other long term (current) drug therapy; Z88.8 Allergy status to other drugs, medicaments and biological substances; Z83.3 Family history of diabetes mellitus